=== PATIENT | female | born 1935 | race Caucasian/White ===

== ENCOUNTER 2018-09-06 16:54 | Emergency (ER) | payer MEDICARE, OTHER ==
[~2018-09-06] VITALS: Ht 160 cm; Wt 60.8 kg
[~2018-09-06 16:54] MED LIST: ASPI81CH PO; CENTRUM COMPLE1 EACH PO; Cardizem CD 12120 MG PO; DOCU100 PO; GAVILAX17 GM PO; HYDR1TAB94 PO; Hydrochlorothia25 MG PO; LISI20 PO; LOSA50 PO; OMEP20ER PO; PANT40 PO; PYRI100 PO; SIMV40 PO
[2018-09-06 18:32] LABS: BASOPHILS ABSOLUTE AUTO 0.05 K/mm3 (0.00-0.23); BASOPHILS PERCENT AUTO 1 % (0-2); EOSINOPHILS ABSOLUTE AUTO 0.16 K/mm3 (0.00-0.68); EOSINOPHILS PERCENT AUTO 2 % (0-6); Hematocrit 35.7 % (33.0-51.0); Hemoglobin 11.6 g/dL (11.5-16.0); IMMATURE GRAN ABSOLUTE AUTO 0.02 K/mm3 (0.00-0.10); IMMATURE GRAN PERCENT AUTO 0 % (0-1); LYMPHOCYTES ABSOLUTE AUTO 1.55 K/mm3 (0.84-5.20); LYMPHOCYTES PERCENT AUTO 23 % (21-46); MONOCYTES ABSOLUTE AUTO 0.72 K/mm3 (0.16-1.47); MONOCYTES PERCENT AUTO 11 % (4-13); Mean Corpuscular HGB 32.1 pg (26.0-34.0); Mean Corpuscular HGB Conc 32.5 g/dL (31.5-36.5); Mean Corpuscular Volume 99 fL (80-100); Mean Platelet Volume 10.1 fL (9.1-12.4); NEUTROPHILS ABSOLUTE AUTO 4.35 K/mm3 (1.96-9.15); NEUTROPHILS PERCENT AUTO 64 % (41-73); Platelet Count 164 K/mm3 (150-400); RDW Coefficient Variation 13.2 % (11.7-14.2); RDW Standard Deviation 48.4 fL (35.1-46.3); Red Blood Cell Count 3.61 M/mm3 (3.80-5.20); White Blood Cell Count 6.85 K/mm3 (4.00-11.30)
[2018-09-06 19:06] LABS: Albumin, Blood 3.6 g/dL (3.4-5.0); Albumin/Globulin Ratio 1.2 (0.8-1.8); Bilirubin, Total 0.5 mg/dL (0.1-1.0); Bun/Creatinine Ratio 14.8 (12.0-20.0); Calcium, Blood 8.9 mg/dL (8.5-10.1); Creatinine, Blood 1.55 mg/dL (0.40-1.00); Globulin, Blood 3.1 g/dL (2.2-4.0); Potassium, Blood 3.6 mmol/L (3.5-5.5); Total Protein, Blood 6.7 g/dL (6.4-8.2)
== END 2018-09-06 20:10 | disposition left against medical advice (07) ==
LOC: ER 16:54
PROVIDERS: Emergency Medicine
DX: Z53.21 Procedure and treatment not carried out due to patient leaving prior to being seen by health care provider (principal)
CPT/HCPCS: 36415; 74176; 80053; 83690; 85025

== ENCOUNTER 2019-05-05 23:57 | Emergency (ER) | payer MEDICARE, OTHER ==
[~2019-05-05] VITALS: Ht 160 cm; Wt 59.9 kg
== END 2019-05-06 01:27 | disposition home or self-care (01) ==
LOC: ER 23:57
DX: I10 Essential (primary) hypertension (principal); I48.91 Unspecified atrial fibrillation; Z88.8 Allergy status to other drugs, medicaments and biological substances; Z88.2 Allergy status to sulfonamides; Z79.899 Other long term (current) drug therapy; Z79.82 Long term (current) use of aspirin; Z86.73 Personal history of transient ischemic attack (TIA), and cerebral infarction without residual deficits
CPT/HCPCS: 99283

== ENCOUNTER → 2020-06-18 | Outpatient (CLI) | payer MEDICARE, OTHER ==
[2020-06-18 13:18] LABS: Stool Occult Bld Immuno 1 Positive (NEGATIVE)
== END | disposition home or self-care (01) ==
LOC: LAB SHORT 08:45 → LAB 08:45
PROVIDERS: Nurse Practitioner Family
DX: R19.5 Other fecal abnormalities (principal)
CPT/HCPCS: 82274

== ENCOUNTER → 2020-07-30 | Outpatient (CLI) | payer MEDICARE, OTHER ==
[2020-07-30 14:16] LABS: Stool Occult Bld Immuno 1 Positive (NEGATIVE)
== END | disposition home or self-care (01) ==
LOC: LAB 10:26 → LAB SHORT 10:26
PROVIDERS: Nurse Practitioner Family
DX: K92.1 Melena (principal)
CPT/HCPCS: 82274

== ENCOUNTER → 2020-08-07 | Outpatient (CLI) | payer MEDICARE, OTHER | END | disposition home or self-care (01) | LOC: LAB 11:20 → LAB SHORT 11:20 | DX: R30.9 Painful micturition, unspecified (principal) | CPT/HCPCS: 87086 ==

== ENCOUNTER → 2020-10-30 | Outpatient (CLI) | payer MEDICARE, OTHER ==
[2020-10-30 08:12] LABS: Source, Urine Clean Catch
[2020-10-30 12:37] LABS: Appearance, Urine Clear (Clear); Bilirubin, Urine Neg (Neg); Blood, Urine Neg (Neg); Color, Urine Yellow (P-Yellow); Glucose Qualitative, Urine Neg (Neg); Ketones, Urine 1+ (Neg); Leukocyte Esterase, Urine 1+ (Neg); Nitrite, Urine Neg (Neg); Protein, Urine 1+ (Neg); Urobilinogen, Urine NORM (Normal)
[2020-10-30 13:09] LABS: Hyaline Casts 25-50 /lpf (0-2)
[2020-10-30 13:10] LABS: Bacteria Many /hpf; Red Blood Cells, Urine Not Seen /hpf (0-2); Squamous Epithelial Cells Rare /hpf (Few); White Blood Cells, Urine 0-2 /hpf (0-5)
== END | disposition home or self-care (01) ==
LOC: LAB SHORT 08:11 → LAB 08:11
PROVIDERS: Nurse Practitioner Family
DX: I10 Essential (primary) hypertension (principal)
CPT/HCPCS: 81001; 87086

== ENCOUNTER 2021-02-03 18:39 | Inpatient (IN) | payer MEDICARE, OTHER ==
[~2021-02-03] VITALS: Ht 167.6 cm; Wt 59.4 kg
[~2021-02-03 18:39] MED LIST changes: -GAVILAX17 GM PO; +MIRALAX17 GM PO
[2021-02-03 19:06] LABS: Hematocrit 29.3 % (33.0-51.0); Hemoglobin 9.9 g/dL (11.5-16.0); Mean Corpuscular HGB 31.9 pg (26.0-34.0); Mean Corpuscular HGB Conc 33.8 g/dL (31.5-36.5); Mean Corpuscular Volume 95 fL (80-100); Platelet Count 153 K/mm3 (150-400); RDW Coefficient Variation 13.1 % (11.7-14.2); RDW Standard Deviation 45.2 fL (35.1-46.3); White Blood Cell Count 4.34 K/mm3 (4.00-11.30)
[2021-02-03] MEDS ORDERED: ELIQUIS5 M2 PO (19:21)
[2021-02-03 19:30] LABS: Albumin, Blood 2.6 g/dL (3.4-5.0); Albumin/Globulin Ratio 0.8 (0.8-1.8); Bilirubin, Total 0.6 mg/dL (0.1-1.0); Bun/Creatinine Ratio 28.9 (12.0-20.0); Calcium, Blood 8.1 mg/dL (8.5-10.1); Creatinine, Blood 1.94 mg/dL (0.40-1.00); Globulin, Blood 3.3 g/dL (2.2-4.0); Potassium, Blood 3.9 mmol/L (3.5-5.5); Total Protein, Blood 5.9 g/dL (6.4-8.2); Troponin I 0.04 ng/mL (0.000-0.040)
[2021-02-03 19:40] LABS: BAND PERCENT MAN 1 % (0-8); BASOPHILS PERCENT MAN 0 % (0-2); EOSINOPHILS PERCENT MAN 0 % (0-6); LYMPHOCYTES % ATYPICAL MANUAL 3 % (0-0); LYMPHOCYTES ABSOLUTE MAN 0.91 K/mm3 (0.84-5.20); LYMPHOCYTES PERCENT MAN 18 % (21-46); MONOCYTES ABSOLUTE MAN 0.08 K/mm3 (0.16-1.47); MONOCYTES PERCENT MAN 2 % (4-13); NEUTROPHILS ABSOLUTE MAN 3.34 K/mm3 (1.96-9.15); SEG NEUTROPHILS PERCENT MAN 76 % (41-73); TOTAL CELLS COUNTED 100
[2021-02-03] MEDS ORDERED: Methocarbamol500 MG PO (21:11)
[2021-02-03] MEDS ORDERED: OMEPRAZOLE MAGN20 M1 PO (21:11)
[2021-02-03] MEDS ORDERED: CARTIA XT PO (21:11)
--- NOTE | 2021-02-04 03:40 | NUR ---
85 YEAR OLD pt WHO HAS HX OF AFIB RATER ASSOCIATE WAS ADMITTED WITH COVID 19 HYPOXIA REQUIRES AIRVO HIGH FLOW HEATED OXYGEN TO MAINTAIN SATS BETWEEN 90 TO 94 %. aLERT, ABLE TO COMMUNICATE, BED ALARM ON DUE TO WEAKNESS.
[2021-02-04 06:09] LABS: BASOPHILS ABSOLUTE AUTO 0.01 K/mm3 (0.00-0.23); BASOPHILS PERCENT AUTO 0 % (0-2); EOSINOPHILS PERCENT AUTO 0 % (0-6); Hematocrit 30.2 % (33.0-51.0); IMMATURE GRAN ABSOLUTE AUTO 0.04 K/mm3 (0.00-0.10); IMMATURE GRAN PERCENT AUTO 1 % (0-1); LYMPHOCYTES ABSOLUTE AUTO 0.52 K/mm3 (0.84-5.20); LYMPHOCYTES PERCENT AUTO 12 % (21-46); MONOCYTES ABSOLUTE AUTO 0.14 K/mm3 (0.16-1.47); MONOCYTES PERCENT AUTO 3 % (4-13); Mean Corpuscular HGB 31.7 pg (26.0-34.0); Mean Corpuscular HGB Conc 33.1 g/dL (31.5-36.5); Mean Corpuscular Volume 96 fL (80-100); Mean Platelet Volume 9.9 fL (9.1-12.4); NEUTROPHILS ABSOLUTE AUTO 3.81 K/mm3 (1.96-9.15); NEUTROPHILS PERCENT AUTO 84 % (41-73); Platelet Count 149 K/mm3 (150-400); RDW Standard Deviation 45.2 fL (35.1-46.3); Red Blood Cell Count 3.15 M/mm3 (3.80-5.20); White Blood Cell Count 4.52 K/mm3 (4.00-11.30)
[2021-02-04 06:30] LABS: Albumin, Blood 2.2 g/dL (3.4-5.0); Albumin/Globulin Ratio 0.6 (0.8-1.8); Bilirubin, Total 0.6 mg/dL (0.1-1.0); Bun/Creatinine Ratio 30.6 (12.0-20.0); Calcium, Blood 7.7 mg/dL (8.5-10.1); Creatinine, Blood 1.57 mg/dL (0.40-1.00); Globulin, Blood 3.4 g/dL (2.2-4.0); Total Protein, Blood 5.6 g/dL (6.4-8.2)
--- NOTE | 2021-02-04 18:26 | NUR ---
SHIFT SUMMARY PATIENT IS ALERT AND ORIENTED X2-3. HARD OF HEARING. PATIENT HAS NEEDED TITRATION OF OXYGEN THROUGHOUT SHIFT. PATIENT SATS BEST IN PRONED POSITION. PATIENT IS CURRENTLY AT 50 LITERS 80 PERCENT O2. PATIENT HAS AN EXTERNAL BIOX PLACED AND IS SATTING AT MID 90S.
--- NOTE | 2021-02-05 06:37 | NUR ---
85 year PT who lives alone continues in special droplet contact isolation for covid 19. She continues to be hypoxic & requires airvo high flow heated oxygen to main sats great to or equal to 90%She desats with activity to around 84% & has slow recovery to 90. Very weak & needs assist to get up to bedside commode.
--- NOTE | 2021-02-05 18:30 | NUR ---
Shift [place], The patient is A/OX4 TO PERSON, PLACE, TIME AND EVENT. The patient does not communicate well r/t hx of stroke. She is a 1 prsn assist to the BSC. She has been sleeping most of the day. She did not eat her breakfast or lunch but drank an ensure. The patient c/o back pain that is controlled with pain meds per EMAR. The patient is on AIRVO and SPO2 RANGES FROM 85%-95% Depending on her possition. She has been instructed to prone or lay on her side. When she is on her side her SPO2 increases to 95%. her SPO2 decreases when she eats. She is currently in her room eating dinner.
[2021-02-06 06:28] LABS: BASOPHILS ABSOLUTE AUTO 0.01 K/mm3 (0.00-0.23); BASOPHILS PERCENT AUTO 0 % (0-2); EOSINOPHILS PERCENT AUTO 0 % (0-6); Hematocrit 29.9 % (33.0-51.0); Hemoglobin 9.8 g/dL (11.5-16.0); Mean Corpuscular HGB 31.4 pg (26.0-34.0); Mean Corpuscular HGB Conc 32.8 g/dL (31.5-36.5); Mean Corpuscular Volume 96 fL (80-100); Mean Platelet Volume 9.6 fL (9.1-12.4); Platelet Count 187 K/mm3 (150-400); RDW Standard Deviation 45.9 fL (35.1-46.3); Red Blood Cell Count 3.12 M/mm3 (3.80-5.20)
[2021-02-06 06:41] LABS: Bun/Creatinine Ratio 35.8 (12.0-20.0); Calcium, Blood 8.7 mg/dL (8.5-10.1); Creatinine, Blood 1.06 mg/dL (0.40-1.00); Potassium, Blood 4.2 mmol/L (3.5-5.5)
[2021-02-06 06:54] LABS: IMMATURE GRAN ABSOLUTE AUTO 0.13 K/mm3 (0.00-0.10); IMMATURE GRAN PERCENT AUTO 2 % (0-1); LYMPHOCYTES ABSOLUTE AUTO 0.46 K/mm3 (0.84-5.20); LYMPHOCYTES PERCENT AUTO 6 % (21-46); MONOCYTES ABSOLUTE AUTO 0.24 K/mm3 (0.16-1.47); MONOCYTES PERCENT AUTO 3 % (4-13); NEUTROPHILS ABSOLUTE AUTO 7.56 K/mm3 (1.96-9.15); NEUTROPHILS PERCENT AUTO 90 % (41-73)
[2021-02-06 09:18] LABS: BASOPHILS PERCENT MAN 0 % (0-2); EOSINOPHILS PERCENT MAN 0 % (0-6); LYMPHOCYTES ABSOLUTE MAN 0.16 K/mm3 (0.84-5.20); LYMPHOCYTES PERCENT MAN 2 % (21-46); MONOCYTES ABSOLUTE MAN 0.33 K/mm3 (0.16-1.47); MONOCYTES PERCENT MAN 4 % (4-13); NEUTROPHILS ABSOLUTE MAN 7.89 K/mm3 (1.96-9.15); SEG NEUTROPHILS PERCENT MAN 94 % (41-73); TOTAL CELLS COUNTED 100
--- NOTE | 2021-02-06 19:24 | NUR ---
PT REMAINS CONFUSED AND NONCOMPLIANT BT TAKING HER NRB AND AIRVO OFF THROUGHOUT SHIFT. PT CAN SAY 1 WORD AT A TIME. PT ANXIETY WAS TREATED PER EMAR AND CALMED PT DOWN ENOUGH TO REST AND KEEP O2 ON. PT PREFERES TO USE CAMODE THE BEDPAN AGGITATES HER IN HER CONFUSION. PT SATURATION DIPS TO LOW 70'S WITH MASK OFF. MAY NEED CHEMICAL OR MECHANICAL RESTRAINTS NIGHT GOES ON. NIGHT RN AWARE. STAFF WILL CONT TO MONITOR.
--- NOTE | 2021-02-07 03:15 | NUR ---
I SPOKE TO DR. MARTINEZ, UPDATED ON INCREASED RESPIRATORY RATE/35, AND PT ON AIRVO 60%, 15L NRB. UPDATED PT MENTATION DECLINED, AND PT IS CURRENTLY IN RESTRAINTS. REQUESTED CONVERSATION REGARDING CODE STATUS - PALLIATIVE ORDER IN PLACE. HE RECOMMENDED TALKING TO KRZYSZTOF RT - REPORTED I HAD ALREADY SPOKE TO HIM. HE ASKED THAT I ALSO FOLLOW UP WITH FAMILY.
--- NOTE | 2021-02-07 03:20 | NUR ---
I SPOKE TO KRZYSZTOF, RT - NO BIPAP'S CURRENTLY AVAILABLE. PT'S SATS ARE 90-91% CURRENTLY.
--- NOTE | 2021-02-07 03:30 | NUR ---
SPOKE TO AXEL, ESTIVEN - REVIEWED CONVERSATION WITH DR. MARTINEZ, ALSO REVIEWED ADVANCE DIRECTIVE. CONTACTED LEO, FRIEND, HC FACING CUTTING MACHINE OPERATOR - LM AND ALSO CONTACTED JCARLOS, , AND TERRIE.
--- NOTE | 2021-02-07 04:01 | NUR ---
I SPOKE TO JCARLOS ALIVIA, - HE IS PT'S HEALTH CARE CERAMIC RESTORER. HE RELAYS THAT PT'S BOYFRIEND, LEO 1 WEEK AGO. JCARLOS REPORTS BEING PRESENT WHEN RAY PASSED, AND HE SAID "HE WISHED PAT COULD GO WITH HIM," AND SHE STATED "SHE WISH SHE COULD TOO." JCARLOS REPORTS PT DOES NOT WANT RESUSCITATION, AND THAT PT HAS "NO FAMILY." PT HAS AN ADVANCE DIRECTIVE IN FRONT OF THE CHART, STATING NO ADVANCED LIFE SUPPORT. JCARLOS SIGNED THIS ADVANCE DIRECTIVE, SEE ADVANCE DIRECTIVE IN CHART.
--- NOTE | 2021-02-07 04:15 | NUR ---
I SPOKE TO DR. MARTINEZ, REVIEWED THE CONVERSATION WITH JCARLOS. HE ORDERED A DNR/DNI, AND WILL REACH OUT TO JCARLOS, AT [phone]. AMAN ORDERED OBTAINED ALSO.
--- NOTE | 2021-02-07 07:28 | NUR ---
SHIFT SUMMARY - SEE PREVIOUS DOCUMENTATION THIS SHIFT. PT IS A DNR, DNR BAND IN PLACE TO LEFT ARM. AMAN AND BILATERAL WRIST RESTRAINTS ON, PT HAS BEEN ABLE TO GET HERSELF OUT OF THE WRIST RESTRAINTS, AND HAS OFTEN PULLED OFF HER NRB MASK - PT NOT EASILY REDIRECTABLE. PT KNEW WHO JCARLOS WAS, WHEN ASKED THIS AM. JCARLOS, FRIEND, APPARENTLY HAS POA, PER DR. MARTINEZ, AND JCARLOS WILL BE BRINGING THIS FORM IN TODAY. HE ALSO WILL FILL OUT A POLST - REVIEWED THIS WITH DAY SHIFT FOR COORDINATION. SATS HAVE DROPPED TO 70'S MULTIPLE TIMES WHEN PT PULLS HER NRB OFF. PT ON AIRVO 50L AND ADJUSTED UP TO 60L, AND 15L NRB MASK ON.
--- NOTE | 2021-02-07 14:10 | NUR ---
pt worsening family notified and they understand her decline agree with comfort care. advised RT and nurse to slowly remove oxygen apperatus. family will try to bring in dog.
--- NOTE | 2021-02-07 16:37 | NUR ---
DR. RED AND FAMILY NOTIFIED OF PASSING.
--- NOTE | 2021-02-07 16:53 | NUR ---
WENT IN TO CHECK ON PATIENT AT 1605; PATIENT WAS . VERIFIED BY DONYA ERNANDEZ.
--- NOTE | 2021-02-07 17:02 | NUR ---
Update 02/07/21: Palliative care provided update that patient's family has decided on comfort care due to declining condition and poor prognosis. Unlikely that pt. will make it out of the hospital. Pt. earlier this evening.
== END 2021-02-07 16:05 | DRG 871 ==
LOC: ER 18:39 → MEDS 21:07
PROVIDERS: Internal Medicine; Student in an Organized Health Care Education/Training Program; ADMIT Internal Medicine
PROC: 8E0ZXY6 Isolation (ICD-10-PCS; principal; 2021-02-04)
PROC: 3E0333Z Introduction of Anti-inflammatory into Peripheral Vein, Percutaneous Approach (ICD-10-PCS; 2021-02-04)
DX: A41.89 Other specified sepsis (principal); U07.1 COVID-19; J96.01 Acute respiratory failure with hypoxia; J12.82 Pneumonia due to coronavirus disease 2019; N17.9 Acute kidney failure, unspecified; Z51.5 Encounter for palliative care; K21.9 Gastro-esophageal reflux disease without esophagitis; N18.30 Chronic kidney disease, stage 3 unspecified; I12.9 Hypertensive chronic kidney disease with stage 1 through stage 4 chronic kidney disease, or unspecified chronic kidney disease; N18.9 Chronic kidney disease, unspecified; E78.00 Pure hypercholesterolemia, unspecified; G25.0 Essential tremor; E86.0 Dehydration; I48.91 Unspecified atrial fibrillation; Z87.891 Personal history of nicotine dependence; Z86.73 Personal history of transient ischemic attack (TIA), and cerebral infarction without residual deficits; Z98.890 Other specified postprocedural states; Z79.01 Long term (current) use of anticoagulants; Z90.49 Acquired absence of other specified parts of digestive tract; Z88.8 Allergy status to other drugs, medicaments and biological substances; Z79.899 Other long term (current) drug therapy
CPT/HCPCS: 36415; 71045; 80048; 80053; 84145; 84484; 85025; 85379; 86141; 93005; 93010; 93971; 94762; 96361; 96374; 99285-25; A9270; J0456; J0696; J1100; J1630; J2060; J2920; J7030; J7050; J7120